=== PATIENT | female | born 1980 ===

== ENCOUNTER 2020-09-18 00:26 | Emergency (ER) | payer SELFPAY ==
[2020-09-18] MEDS ORDERED: ASPIRIN 325 MG TAB PO ONE (01:10)
[2020-09-18 02:19] LABS: Hematocrit 41.6 % (30.3-42.9); Hemoglobin 13.9 gm/dl (10.1-14.3); Mean Corpuscular HGB Conc 34 % (30-34); Mean Corpuscular Volume 84 fl (79-97); Platelet Count 151 K/mm3 (140-440); Red Blood Count 4.96 M/mm3 (3.65-5.03)
[2020-09-18 02:22] LABS: Lymphocytes % (Auto) 17.7 % (13.4-35.0)
[2020-09-18 02:24] LABS: Basophils % (Auto) 0.4 % (0.0-1.8); Eosinophils % (Auto) 0.3 % (0.0-4.3); Monocytes # (Auto) 0.3 K/mm3 (0.0-0.8); Monocytes % (Auto) 5.8 % (0.0-7.3)
[2020-09-18 02:25] LABS: BUN/Creatinine Ratio 20; Blood Urea Nitrogen 8 mg/dL (7-17); Calcium 9.5 mg/dL (8.4-10.2); Hemolysis Index 3
[2020-09-18] MEDS ORDERED: IBUPROFEN 600 MG TAB PO ONE (02:48)
[2020-09-18] MEDS ORDERED: ACETAMINOPHEN 325 MG TAB PO ONE (02:48)
--- NOTE | 2020-09-18 02:49 | Emergency Department Report ---
ED General Adult HPI - General Chief complaint: Chest Pain Stated complaint: DIFF BREATHING PUI?: Yes Time Seen by Provider: 09/18/20 02:30 Source: patient, RN notes reviewed, old records reviewed Mode of arrival: Ambulatory Limitations: No Limitations - History of Present Illness Initial comments: The patient was evaluated in the emergency department for symptoms described in the history of present illness. He/she was evaluated in the context of the global COVID-19 pandemic, which necessitated consideration that the patient might be at risk for infection with the virus that causes COVID-19. Institutional protocols and algorithms that pertain to the evaluation of patients at risk for COVID-19 are in a state of rapid change based on information released by regulatory bodies including the CDC and federal and state organizations. These policies and algorithms were followed during the patient's care in the emergency department. Please note that these policies, procedures and recommendations changed on a rapid basis. During the entire history and physical examination, I had on complete personal protective equipment. The patient is a 40-year-old female. She is not known to myself previously. The patient was tested/diagnosed with COVID-19 this past . It is currently . She presents to the ER today with a complaint of cough, chest wall pain, shortness of breath for the past few days. Question fever, no loss of taste or smell, no abdominal pain, no vomiting, positive body aches. Denies , oral contraceptive use, and DVT and pulmonary embolism risk factors. Symptoms worsen with physical exertion, and decreased with rest. Patient reports positive outpatient Covid test. Apparently, an outpatient physician has prescribed her azithromycin. -: Gradual, days(s) Location: chest Radiation: non-radiation Consistency: intermittent Improves with: rest Worsens with: other (Physical exertion) - Related Data Previous Rx's Medication Instructions Recorded Last Taken Type Acetaminophen [Non-Aspirin Extra 500 mg PO Q6HR PRN #30 tablet 09/18/20 Unknown Rx Strength] Albuterol Sulfate [Proair 90 mcg IH Q4HR PRN #2 aer.pow.ba 09/18/20 Unknown Rx Respiclick] Ondansetron [Zofran Odt] 4 mg PO Q8HR PRN #20 tab.rapdis 09/18/20 Unknown Rx Allergies Allergy/AdvReac Type Severity Reaction Status Date / Time No Known Allergies Allergy Verified 09/18/20 02:32 ED Review of Systems ROS: Stated complaint: DIFF BREATHING Other details as noted in HPI Constitutional: malaise, weakness. denies: fever ENT: congestion Respiratory: cough Cardiovascular: chest pain Gastrointestinal: denies: abdominal pain Musculoskeletal: arthralgia, myalgia Neurological: weakness Hematological/Lymphatic: denies: easy bleeding ED Past Medical Hx - Past Medical History Previous Medical History?: No - Surgical History Past Surgical History?: No - Social History Smoking Status: Never Smoker Substance Use Type: None - Medications Home Medications: Home Medications Medication Instructions Recorded Confirmed Last Taken Type Acetaminophen [Non-Aspirin Extra 500 mg PO Q6HR PRN #30 tablet 09/18/20 Unknown Rx Strength] Albuterol Sulfate [Proair 90 mcg IH Q4HR PRN #2 aer.pow.ba 09/18/20 Unknown Rx Respiclick] Ondansetron [Zofran Odt] 4 mg PO Q8HR PRN #20 tab.rapdis 09/18/20 Unknown Rx ED Physical Exam - General Limitations: No Limitations General appearance: alert, in no apparent distress - Head Head exam: Present: atraumatic, normocephalic - Eye Eye exam: Present: normal appearance, EOMI. Absent: nystagmus - ENT ENT exam: Present: normal exam, normal orophraynx, mucous membranes moist, normal external ear exam - Neck Neck exam: Present: normal inspection, full ROM. Absent: tenderness, meningismus - Respiratory Respiratory exam: Present: normal lung sounds bilaterally, chest wall tenderness. Absent: respiratory distress, wheezes, rales, rhonchi, stridor, decreased breath sounds - Cardiovascular Cardiovascular Exam: Present: regular rate, normal rhythm, normal heart sounds. Absent: bradycardia, tachycardia, irregular rhythm, systolic murmur, diastolic murmur, rubs, gallop - GI/Abdominal GI/Abdominal exam: Present: soft, normal bowel sounds. Absent: distended, tenderness, guarding, rebound, rigid, pulsatile mass - Extremities Exam Extremities exam: Present: normal inspection, full ROM, other (2+ pulses noted in the bilateral upper and lower extremities. There is no palpable cord. negative Homans sign. Muscular compartments are soft. The pelvis is stable.). Absent: pedal edema, calf tenderness - Back Exam Back exam: Present: normal inspection, full ROM. Absent: tenderness, CVA tenderness (R), CVA tenderness (L), paraspinal tenderness, vertebral tenderness - Neurological Exam Neurological exam: Present: alert, oriented X3, normal gait, other (No facial dr oop. Tongue midline. Extraocular movements intact bilaterally. Facial sensation intact to light touch in V1, V2, V3 distribution bilaterally. 5 and a 5 strength in 4 extremities. Sensation intact to light touch in 4 extremities.). Absent: motor sensory deficit - Psychiatric Psychiatric exam: Present: anxious - Skin Skin exam: Present: warm, dry, intact, normal color. Absent: rash ED Course Vital Signs 09/18/20 09/18/20 09/18/20 00:43 01:00 02:50 Temperature 97.2 F L 97.8 F Pulse Rate 95 H 87 97 H Respiratory 16 18 18 Rate Blood Pressure 109/70 100/67 Blood Pressure [Left] O2 Sat by Pulse 97 97 97 Oximetry 09/18/20 04:25 Temperature Pulse Rate 97 H Respiratory 18 Rate Blood Pressure Blood Pressure 132/75 [Left] O2 Sat by Pulse 97 Oximetry ED Medical Decision Making - Lab Data Result diagrams: 09/18/20 01:45 09/18/20 01:45 Vital Signs 09/18/20 09/18/20 09/18/20 00:43 01:00 02:50 Temperature 97.2 F L 97.8 F Pulse Rate 95 H 87 97 H Respiratory 16 18 18 Rate Blood Pressure 109/70 100/67 O2 Sat by Pulse 97 97 97 Oximetry Lab Results 09/18/20 09/18/20 09/18/20 Range/Units 01:45 01:45 01:45 WBC 5.4 (4.5-11.0) K/mm3 RBC 4.96 (3.65-5.03) M/mm3 Hgb 13.9 (10.1-14.3) gm/dl Hct 41.6 (30.3-42.9) % MCV 84 (79-97) fl MCH 28 (28-32) pg MCHC 34 (30-34) % RDW 14.0 (13.2-15.2) % Plt Count 151 (140-440) K/mm3 Lymph % (Auto) 17.7 (13.4-35.0) % [place] % (Auto) 5.8 (0.0-7.3) % Eos % (Auto) 0.3 (0.0-4.3) % Baso % (Auto) 0.4 (0.0-1.8) % Lymph # (Auto) 1.0 L (1.2-5.4) K/mm3 [place] # (Auto) 0.3 (0.0-0.8) K/mm3 Eos # (Auto) 0.0 (0.0-0.4) K/mm3 Baso # (Auto) 0.0 (0.0-0.1) K/mm3 Seg Neutrophils % 75.8 H (40.0-70.0) % Seg Neutrophils # 4.1 (1.8-7.7) K/mm3 Sodium 138 (137-145) mmol/L Potassium 3.6 (3.6-5.0) mmol/L Chloride 102.9 (98-107) mmol/L Carbon Dioxide 23 (22-30) mmol/L Anion Gap 16 mmol/L BUN 8 (7-17) mg/dL Creatinine 0.4 L (0.6-1.2) mg/dL Estimated GFR > 60 ml/min BUN/Creatinine Ratio 20 % Glucose 110 H (65-100) mg/dL Calcium 9.5 (8.4-10.2) mg/dL Troponin T < 0.010 (0.00-0.029) ng/mL HCG, Qual Negative (Negative) - EKG Data -: EKG Interpreted by Me EKG shows normal: sinus rhythm Rate: normal - EKG Data When compared to previous EKG there are: previous EKG unavailable 09/18/20 04:14 EKG #1 shows sinus rhythm, 98 bpm, left axis deviation, left anterior fascicular block, motion artifact, borderline atrial enlargement, abnormal EKG, not a STEMI. EKG #2 unchanged from prior. Not a STEMI. EKG #3 has lead malposition, and will therefore not be interpreted are included in this documentation. EKG #4 shows a sinus rhythm, 78 bpm, left axis deviation, left anterior fascicular block, not consistent with STEMI unchanged from EKGs #1 and 2. - Radiology Data Radiology results: pending, report reviewed, image reviewed interpreted by me: X-ray of the chest, interpreted by myself, negative for acute findings X-ray the chest is negative for acute finding - Medical Decision Making Differential diagnosis, including but not limited to: COVID-19, costochondritis Assessment and plan: 40-year-old female presenting with symptomatic Covid, approximately 1 week into course of illness, with expected natural history of COVID-19. She is afebrile with reassuring vital signs, not currently tachycardic, tachypneic or hypoxic. She denies DVT and pulmonary embolism risk factors. Patient ambulated around this department for 5 minutes without desaturation. X-ray the chest is clear of significant infiltrate. Counseled patient and her son, Mr. Fabricio Coles (patient gave verbal permission and consent to discuss the details of her care with her son, including laboratory studies and x-ray results, post) that patient is likely experiencing the natural history of COVID-19. Do not see indication to continue antibiotic therapy at this time. Albuterol, Tylenol, antiemetic medication as needed, supportive care, close outpatient follow-up. Patient observed in this department for hours without clinical decompensation. Low risk for major adverse cardiac event as per heart score. Symptoms present for over 24 hours, troponin negative x1, acute myocardial infarction excluded. This is as per the [employer] clinical policy, which states that acute myocardial infarction may be excluded with 1 set of cardiac enzymes if symptoms present for greater than 8 h ours. Critical care attestation.: If time is entered above; I have spent that time in minutes in the direct care of this critically ill patient, excluding procedure time. ED Disposition Clinical Impression: Suspected 2019 novel coronavirus infection, Chest wall pain Disposition: DC- TO HOME OR SELFCARE Is pt being admited?: No Does the pt Need Aspirin: No Condition: Good Instructions: COVID-19 Frequently Asked Questions, COVID-19, Costochondritis, Chest Pain (ED) Additional Instructions: As we discussed, the patient most likely has novel coronavirus/COVID. the symptoms of COVID will typically persist 10 to 14 days. There is no cure at this time for COVID. Please make certain to self isolate and self quarantine, follow-up with an outpatient primary care doctor within the next 3 to 5 days, wash hands with soap and water frequently, thoroughly and often, patient may take the prescribed medications as needed and directed. Advance diet and drink plenty of fluids as tolerated. Avoid interactions with the very elderly, very young, and those with chronic medical conditions. Return to the emergency room right away with new pain, worsening pain, migration of pain, projectile vomiting, change in mental status, confusion, inability to tolerate liquid feeds, new, worsened or different symptoms not present on the initial emergency room evaluation. Elizabeth comentamos, es muy probable que el paciente tenga un nuevo coronavirus / COVID. los sntomas de COVID generalmente persisten de 10 a 14 fuentes. No existe lito en jony momento para COVID. Asegrese de aislarse y ponerse en cuarentena, richard un seguimiento con un mdico de atencin primaria para pacientes ambu latorios dentro de los prximos 3 a 5 fuentes, lvese las justin con agua y jabn con frecuencia, a fondo y con frecuencia, el paciente puede jossy los medicamentos recetados segn sea necesario y se le indique. Avance en la dieta y karina muchos lquidos segn los tolere. Evite las interacciones con personas muy mayores, muy jvenes y con enfermedades crnicas. Regrese a la vipin de emergencias de inmediato con dolor nuevo, empeoramiento del dolor, migracin del dolor, vmitos en proyectil, cambio en el estado mental, confusin, incapacidad para tolerar alimentos lquidos, sntomas nuevos, empeora dos o diferentes que no estn presentes en la evaluacin inicial de la vipin de emergencias. Prescriptions: Acetaminophen [Non-Aspirin Extra Strength] 500 mg PO Q6HR PRN #30 tablet PRN Reason: Pain , Severe (7-10) Albuterol Sulfate [Proair Respiclick] 90 mcg IH Q4HR PRN #2 aer.pow.ba PRN Reason: Wheezing Ondansetron [Zofran Odt] 4 mg PO Q8HR PRN #20 tab.rapdis PRN Reason: Nausea Referrals: ASYA BOO MD [Staff Physician] - 3-5 Days Forms: Work/School Release Form(ED) Print Language: TURKMEN
--- NOTE | 2020-09-18 04:47 | XRay Report ---
CHEST 1 VIEW INDICATION: Chest Pain. COMPARISON: None FINDINGS: SUPPORT DEVICES: None. HEART: Within normal limits. LUNGS/PLEURA: No acute air space or interstitial disease. ADDITIONAL FINDINGS: None. IMPRESSION: 1. No acute findings. Signer Name: Temo Vallecillo MD Signed: 09/18/2020 4:42 AM Workstation Name: [id number]
[2020-09-18 05:04] VITALS: BP 132/75
== END 2020-09-18 04:34 | disposition home or self-care (01) ==
LOC: ED 00:26
DX: R07.89 Other chest pain (principal); R05 Cough; R06.02 Shortness of breath; Z20.828 Contact with and (suspected) exposure to other viral communicable diseases
CPT/HCPCS: 36415; 71045; 80048; 84484; 84703; 85025; 93005